=== PATIENT | female | born 1980 | race Caucasian/White ===

== ENCOUNTER 2016-04-29 10:49 | Emergency (ER) ==
[2016-04-29 10:53] VITALS: BP 159/103; TEMP 99.6
[2016-04-29 12:05] LABS: FLU INTERNAL QC INTERNAL QC VALID; RAPID FLU A NEGATIVE (NEGATIVE); RAPID FLU B NEGATIVE (NEGATIVE)
--- NOTE | 2016-04-29 12:11 | ED.PDOC ---
General ED Provider: Dr. ATA ESCAMILLA-ER Chief Complaint: Cough Stated Complaint: im coughing Time Seen by Physician: 10:55 Mode of Arrival: Walk-In Information Source: Patient Exam Limitations: No limitations Nursing and Triage Documentation Reviewed and Agree: Yes Respiratory Complaint Exam - Respiratory Complaint/Exam Onset/Duration: 2 dayus Symptoms Are: Still present Timing: Intermittent Initial Severity: Mild Current Severity: Mild Character: Reports: Non-productive cough Aggravating: Reports: URI Alleviating: Reports: None Associated Signs and Symptoms: Reports: URI, Nasal congestion, Sore throat. Denies: Rapid breathing, Dyspnea, Fever, Chills, Chest pain, Pleuritic chest pain, Wheezing, Hemoptysis, Dizziness, Calf pain, Calf swelling, Edema, Hoarseness, Sinus discomfort, Vomiting, Weight loss, Decreased oral intake, Increased appetite, Increased urination Related History: Reports: Similar episode History of Healthcare-Acquired Pneumonia: No Related Surgical History: Reports: None Pulmonary Embolism Risk Factors: None Pseudomonas Risk Factors: Reports: None Tuberculosis Risk Factors: Reports: None Status Asthmaticus Risk Factors: Reports: None Home Oxygen Use: No Recent Stress Test: No Recent Echo/LV Function: No Current Antibiotic Use: No Current Asthma Medication Use: No Respiratory Distress: None Inadequate Respiratory Effort: No Dysphagia Present: No Stridor Present: No JVD Present: No Accessory Muscle Use: No Retractions: Not Present Diminished Breath Sounds: No Sinus Tenderness: None Grunting Respirations: No Kussmaul Respirations: No Differential Diagnoses: Bronchitis Review of Systems - Review Of Systems Constitutional: Reports: No symptoms Eyes: Reports: No symptoms Ears, Nose, Mouth, Throat: Reports: Throat pain Respiratory: Reports: Cough Cardiac: Reports: No symptoms GI: Reports: No symptoms : Reports: No symptoms Musculoskeletal: Reports: No symptoms Skin: Reports: No symptoms Neurological: Reports: No symptoms Endocrine: Reports: No symptoms Hematologic/Lymphatic: Reports: No symptoms All Other Systems: Reviewed and Negative Past Medical History - Past Medical History Previously Healthy: Yes Endocrine: Reports: None Cardiovascular: Reports: None Respiratory: Reports: None Hematological: Reports: None Gastrointestinal: Reports: None Genitourinary: Reports: None Neuro/Psych: Reports: Migraine Musculoskeletal: Reports: None Cancer: Reports: None Last Menstrual Period: 1 week ago - Surgical History General Surgical History: Reports: None - Family History Family History: Reports: None - Social History Smoking Status: Current every day smoker Hx Substance Use: No Alcohol Screening: None Lives: With family Physical Exam - Physical Exam Appearance: Well-appearing, No pain distress, Well-nourished Eyes: DOUGLAS, EOMI, Conjunctiva clear ENT: Ears normal, Nose normal, Oropharynx normal Neck: Supple Respiratory: Rhonchi Cardiovascular: RRR GI/: Soft, Nontender, No masses, Bowel sounds normal, No Organomegaly Musculoskeletal: Normal strength Skin: Warm, Dry, Normal color Neurological: Sensation intact, Motor intact, Reflexes intact, Cranial nerves intact, Alert, Oriented Psychiatric: Affect appropriate, Mood appropriate Critical Care Note - Critical Care Note Total Time (mins): 0 Course - Course Orders, Labs, Meds: Lab Review 04/29/16 11:02 Influenza A (Rapid) Negative Influenza B (Rapid) Negative Orders Category Date Time Status MOLECULAR GROUP A STREP Stat LAB 04/29/16 11:02 Results RAPID FLU A/B Stat LAB 04/29/16 11:02 Completed STREP SCREEN Stat LAB 04/29/16 11:02 Results Vital Signs: Temp Pulse Resp BP Pulse Ox 04/29/16 10:51 99.6 F 90 16 159/103 H 96 Departure - Departure Time of Disposition: 12:10 Disposition: HOME SELF-CARE Discharge Problem: Bronchitis Instructions: Acute Bronchitis (ED) Condition: Good Pt referred to PMD for follow-up: Yes Additional Instructions: biaxin 500mg bid x 10 days..medrol dose pack--robitussin ac 2 tsps q 6hrs prn cough 125cc--avoid cig smoke--recheck in 72hrs if not better Allergies/Adverse Reactions: Allergies amoxicillin trihydrate [From Augmentin] Adverse Reaction (Verified 04/29/16 10: 54) Penicillins Adverse Reaction (Verified 04/29/16 10:54) potassium clavulanate [From Augmentin] Adverse Reaction (Verified 04/29/16 10:54 ) Sulfa (Sulfonamide Antibiotics) Adverse Reaction (Verified 04/29/16 10:54) Home Medications: Ambulatory Orders 1 [No Reported Medications] 04/29/16 Disposition Discussed With: Patient
== END 2016-04-29 12:20 | disposition home or self-care (01) ==
LOC: ED 10:49
DX: J20.9 Acute bronchitis, unspecified (principal); F17.210 Nicotine dependence, cigarettes, uncomplicated
CPT/HCPCS: 87651; 87804; 87880; 99282

== ENCOUNTER 2017-01-13 21:18 | Emergency (ER) ==
[2017-01-13 21:21] VITALS: TEMP 98.3; BMI 20.5
[2017-01-13 21:38] LABS: BILIRUBIN,URINE 1+ (NEGATIVE); KETONES,URINE Trace (NEGATIVE); LEUKOCYTE ESTERASE ,URINE Trace (NEGATIVE); NITRITE,URINE Negative (NEGATIVE); PROTEIN,URINE 3+ (NEGATIVE); URINE, BLOOD 3+ (NEGATIVE)
[2017-01-13 21:42] LABS: ADD URINE MICROSCOPIC YES
[2017-01-13] MEDS ORDERED: DILAUDID 1 MG/ML SYRINGE IVP STA (21:43)
[2017-01-13] MEDS ORDERED: ZOFRAN 4 MG/2 ML IVP STA (21:43)
[2017-01-13] MEDS ORDERED: PROTONIX IV IVP STA (21:43)
[2017-01-13] MEDS ORDERED: SODIUM CHLORIDE 1,000 ML IV STA (21:43)
--- NOTE | 2017-01-13 21:48 | ED.PDOC ---
General ED Provider: Dr. VIRGINIE CARTY Chief Complaint: Abdominal Pain Stated Complaint: Pateint states she has had Abdominal pain for two weeks with some nausea and vomiting. Time Seen by Physician: 21:48 Mode of Arrival: Walk-In Information Source: Patient, Family Exam Limitations: No limitations [facility] Nursing and Triage Documentation Reviewed and Agree: Yes GI Complaint Exam - Abdominal Pain Complaint/Exam Onset: Gradual Duration: 2 weeks Symptoms Are: Still present Timing: Constant Initial Severity: Mild Current Severity: None Location of Pain: RLQ Radiates To: Reports: Back Character: Reports: Dull, Aching Aggravating: Reports: None Associated Signs and Symptoms: Reports: Nausea, Vomiting. Denies: Diaphoresis, Fever, Cough, Chest pain, Dizziness, Back pain, Constipation, Blood in stool, Dysuria, Urinary frequency, Decreased urine output, Decreased appetite, Vaginal bleeding, Vaginal discharge, Diarrhea, Sore throat, Decreased activity AAA Risk Factors: Reports: None Cardiac Risk Factors: Reports: None Ectopic Risk Factors: Reports: Maternal age >30 Ovarian Torsion Risk Factors: Reports: Tubal ligation Surgical Obstruction Risk Factors: Reports: None Related Surgical History: Reports: None Patient Rh Status: Unknown Abdominal Findings: Present: McBurney's Point tender Differential Diagnoses: Appendicitis, Gastroenteritis, UTI, , Ovarian Cyst Review of Systems - Review Of Systems Constitutional: Reports: No symptoms Eyes: Reports: No symptoms Ears, Nose, Mouth, Throat: Reports: No symptoms Respiratory: Reports: No symptoms Cardiac: Reports: No symptoms GI: Reports: Abdominal pain, Nausea, Poor appetite, Vomiting : Denies: Burning, Dysuria, Discharge, Frequency Musculoskeletal: Reports: No symptoms Skin: Reports: No symptoms Neurological: Reports: Anxiety Endocrine: Reports: No symptoms Hematologic/Lymphatic: Reports: No symptoms All Other Systems: Reviewed and Negative Past Medical History - Past Medical History Previously Healthy: Yes Endocrine: Reports: None Cardiovascular: Reports: None Respiratory: Reports: None Hematological: Reports: None Gastrointestinal: Reports: None Genitourinary: Reports: None Neuro/Psych: Reports: Migraine Musculoskeletal: Reports: None Cancer: Reports: None Last Menstrual Period: CURRENT - Surgical History General Surgical History: Reports: Tubal ligation - Family History Family History: Reports: None - Social History Smoking Status: Current every day smoker Hx Substance Use: No Alcohol Screening: Occasionally - Immunizations Tetanus Shot up to Date: Yes Physical Exam - Physical Exam Appearance: Ill-appearing Ill-appearing: Moderate Pain Distress: Moderate Neck: Supple Respiratory: Airway patent, Breath sounds clear, Breath sounds equal, Respirations nonlabored Cardiovascular: RRR, Pulses normal, No rub, No murmur GI/: Soft, Tender Musculoskeletal: Normal strength, ROM intact, No edema, No calf tenderness Skin: Warm, Dry, Normal color Neurological: Sensation intact, Motor intact, Reflexes intact, Cranial nerves intact, Alert, Oriented Psychiatric: Anxious Interpretation - Radiology Interpretation Radiology Interpretation By: Radiologist Radiology Results: Negative Exam Interpreted: CT Scan (Abdomen and Pelvis) Critical Care Note - Critical Care Note Total Time (mins): 0 Course - Course Hematology/Chemistry: 01/13/17 21:54 01/13/17 21:54 Orders, Labs, Meds: Lab Review 01/13/17 01/13/17 01/13/17 20:30 21:54 21:54 WBC 7.45 RBC 3.95 L Hgb 12.3 Hct 35.3 L MCV 89.4 MCH 31.1 H MCHC 34.8 RDW Coeff of Marjan 11.9 Plt Count 316 Immature Gran % (Auto) 0.3 Neut % (Auto) 79.3 Lymph % (Auto) 11.0 [place] % (Auto) 7.5 Eos % (Auto) 1.5 Baso % (Auto) 0.4 Immature Gran # (Auto) 0.0 Neut # 5.9 Lymph # 0.8 [place] # 0.6 Eos # 0.1 Baso # 0.0 Sodium 138 Potassium 3.5 Chloride 104 Carbon Dioxide 24 Anion Gap 13.5 BUN 10 Creatinine 0.75 Estimated GFR (MDRD) 87.00 BUN/Creatinine Ratio 13.33 Glucose 101 Calcium 9.0 Total Bilirubin 0.49 AST 20 ALT 17 Alkaline Phosphatase 62 Total Protein 7.2 Albumin 3.5 Globulin 3.7 Albumin/Globulin Ratio 0.95 Amylase 30 Lipase 16 Serum , Qual Urine Color Red Urine Clarity Turbid Urine pH 6.0 Ur Specific [place] 1.025 Urine Protein 3+ Urine Glucose (UA) Negative Urine Ketones Trace Urine Blood 3+ Urine Nitrite Negative Urine Bilirubin 1+ Urine Urobilinogen 1.0 Ur Leukocyte Esterase Trace Urine Microscopic RBC Tntc Urine Microscopic WBC Tntc Ur Squamous Epith Cells 10-20 01/13/17 21:55 WBC RBC Hgb Hct MCV MCH MCHC RDW Coeff of Marjan Plt Count Immature Gran % (Auto) Neut % (Auto) Lymph % (Auto) [place] % (Auto) Eos % (Auto) Baso % (Auto) Immature Gran # (Auto) Neut # Lymph # [place] # Eos # Baso # Sodium Potassium Chloride Carbon Dioxide Anion Gap BUN Creatinine Estimated GFR (MDRD) BUN/Creatinine Ratio Glucose Calcium Total Bilirubin AST ALT Alkaline Phosphatase Total Protein Albumin Globulin Albumin/Globulin Ratio Amylase Lipase Serum , Qual Negative Urine Color Urine Clarity Urine pH Ur Specific [place] Urine Protein Urine Glucose (UA) Urine Ketones Urine Blood Urine Nitrite Urine Bilirubin Urine Urobilinogen Ur Leukocyte Esterase Urine Microscopic RBC Urine Microscopic WBC Ur Squamous Epith Cells Orders Category Date Time Status ED IV/MEDIPORT/POWERPORT .ONCE EMERGENCY 01/13/17 21:43 Active AMYLASE Stat LAB 01/13/17 21:54 Completed CBC W/ AUTO DIFF Stat LAB 01/13/17 21:54 Completed COMPREHENSIVE METABOLIC PANEL Stat LAB 01/13/17 21:54 Completed LIPASE Stat LAB 01/13/17 21:54 Completed SERUM TEST [SERUM ] Stat LAB 01/13/17 21:55 Completed UA [URINALYSIS C & S IF INDICATED] Stat LAB 01/13/17 20:30 Completed URINE CULTURE Stat LAB 01/13/17 21:31 Received 0.9 % Sodium Chloride [Saline Flush] MEDS 01/13/17 21:43 Ordered 1 syr IVF PRN PRN Hydromorphone HCl [Dilaudid 1 mg/ml Syringe] MEDS 01/13/17 21:43 Discontinued 1 mg IVP ONCE STA Nitrofurantoin Monohyd/M-Cryst [Macrobid] MEDS 01/13/17 23:27 Stat 100 mg PO ONCE STA Ondansetron HCl/Pf [Zofran 4 mg/2 ml] MEDS 01/13/17 21:43 Discontinued 4 mg IVP ONCE STA Pantoprazole Sodium [Protonix IV] MEDS 01/13/17 21:43 Discontinued 40 mg IVP ONCE STA Sodium Chloride 0.9% [Sodium Chloride] 1,000 ml MEDS 01/13/17 21:[address] ABD/PEL WO RENAL STONE PROT Stat RADS 01/13/17 21:43 Completed Medications Generic Name Dose Route Start Last Admin Trade Name Freq PRN Reason Stop Dose Admin Nitrofurantoin Macrocrystals 100 mg 01/13/17 23:27 Macrobid PO 01/13/17 23:28 ONCE STA Sodium Chloride 1 syr 01/13/17 21:43 01/13/17 22:07 Saline Flush IVF 1 syr PRN PRN Administration To flush IV Discontinued Medications Generic Name Dose Route Start Last Admin Trade Name Freq PRN Reason Stop Dose Admin Hydromorphone HCl 1 mg 01/13/17 21:43 01/13/17 22:06 Dilaudid 1 Mg/Ml Syringe IVP 01/13/17 21:44 1 mg ONCE STA Administration Sodium Chloride 1,000 mls @ 1,000 mls/hr 01/13/17 21:43 01/13/17 22:07 Sodium Chloride IV 01/13/17 22:42 1,000 mls/hr BOLUS STA Administration Ondansetron HCl 4 mg 01/13/17 21:43 01/13/17 22:07 Zofran 4 Mg/2 Ml IVP 01/13/17 21:44 4 mg ONCE STA Administration Pantoprazole Sodium 40 mg 01/13/17 21:43 01/13/17 22:06 Protonix Iv IVP 01/13/17 21:44 40 mg ONCE STA Administration Vital Signs: Temp Pulse Resp BP Pulse Ox 01/13/17 23:13 112/67 01/13/17 21:19 98.3 F 90 20 110/78 99 Departure - Departure Time of Disposition: 23:14 Disposition: HOME SELF-CARE Discharge Problem: Abdominal pain Urinary tract infection Qualifiers: Urinary tract infection type: acute cystitis Hematuria presence: with hematuria Qualified Code(s): N30.01 - Acute cystitis with hematuria Instructions: Abdominal Pain (ED), Urinary Tract Infection in Women (ED) Condition: Fair Pt referred to PMD for follow-up: Yes Additional Instructions: Take medication as prescribed Follow up with PCP in 3 days Push fluids Prescriptions: Dicyclomine HCl [Bentyl] 10 mg PO TID PRN #30 capsule PRN Reason: Abdominal Pain Nitrofurantoin Macrocrystal [Macrodantin] 100 mg PO BID #14 capsule Ondansetron HCl [Zofran Tab] 4 mg PO Q8H PRN #15 tablet PRN Reason: Nausea / Vomiting Allergies/Adverse Reactions: Allergies amoxicillin trihydrate [From Augmentin] Adverse Reaction (Verified 04/29/16 10: 54) Penicillins Adverse Reaction (Verified 04/29/16 10:54) potassium clavulanate [From Augmentin] Adverse Reaction (Verified 04/29/16 10:54 ) Sulfa (Sulfonamide Antibiotics) Adverse Reaction (Verified 04/29/16 10:54) Home Medications: Ambulatory Orders Dicyclomine HCl [Bentyl] 10 mg PO TID PRN #30 capsule 01/13/17 Nitrofurantoin Macrocrystal [Macrodantin] 100 mg PO BID #14 capsule 01/13/17 Ondansetron HCl [Zofran Tab] 4 mg PO Q8H PRN #15 tablet 01/13/17 Disposition Discussed With: Patient, Family
[2017-01-13 21:56] LABS: BASOPHILS % (AUTO) 0.4 % (0.0-3.0); EOSINOPHILS # (AUTO) 0.1 K/ul (0.0-0.7); EOSINOPHILS % (AUTO) 1.5 % (0.0-7.0); HEMATOCRIT 35.3 % (37.0-47.0); HEMOGLOBIN 12.3 g/dl (12.0-16.0); IMMATURE GRANULOCYTE % (AUTO) 0.3 % (0.0-5.0); LYMPHOCYTES # (AUTO) 0.8 K/uL (0.60-3.4); MEAN CORPUSCULAR HEMOGLOBIN 31.1 pg (27.0-31.0); MEAN CORPUSCULAR HGB CONC 34.8 (31.8-35.4); MEAN CORPUSCULAR VOLUME 89.4 fl (81.0-99.0); MONOCYTES # (AUTO) 0.6 K/uL (0.4-2.0); MONOCYTES % (AUTO) 7.5 (0-10); NEUTROPHILS # (AUTO) 5.9 K/ul (2.0-6.9); NEUTROPHILS % (AUTO) 79.3; PLATELET COUNT 316 10^3/uL (140-440); RED BLOOD COUNT 3.95 10^6/ul (4.20-5.40); WHITE BLOOD COUNT 7.45 K/ul (4.6-10.2)
[2017-01-13 22:14] LABS: SERUM PREGNANCY INTERNAL QC INTERNAL QC VALID
[2017-01-13 22:18] LABS: ALBUMIN 3.5 g/dL (3.4-5.0); ALBUMIN/GLOBULIN RATIO 0.95; ANION GAP 13.5; BILIRUBIN,TOTAL 0.49 mg/dL (0.00-1.20); BUN/CREATININE RATIO 13.33; CREATININE 0.75 mg/dL (0.60-1.30); POTASSIUM 3.5 mmol/L (3.5-5.10); TOTAL PROTEIN 7.2 g/dL (6.4-8.2)
--- NOTE | 2017-01-13 22:50 | CT ---
Exam: CT of the abdomen and pelvis without contrast History: Abdominal pain Technique: [address] of the abdomen pelvis without intravascular contrast FINDINGS: The lung bases are clear. No significant liver abnormality. The adrenals, pancreas and spl een are unremarkable. The stomach and hiatus are unremarkable.The gallbladder appears normal. Kidneys and proximal collecting system are unremarkable. Atherosclerotic calcification of the aorta without aneurysm. The appendix is normal. Pelvic genitourinary structures appear normal. Pelvic bowel loops are unremarkable. No inflammatory c hange in the pelvic fat. No acute abnormality of the abdominal or pelvic skeleton. Impression: 1. No inflammatory process, bowel or urinary obstruction is seen. No acute findings of the abdomen or pelvis.
[2017-01-13 23:14] VITALS: BP 112/67
[2017-01-13] MEDS ORDERED: MACROBID PO STA (23:27)
== END 2017-01-13 23:48 | disposition home or self-care (01) ==
LOC: ED 21:18
DX: N30.01 Acute cystitis with hematuria (principal); R10.9 Unspecified abdominal pain; F17.210 Nicotine dependence, cigarettes, uncomplicated
CPT/HCPCS: 36415; 74176; 80053; 81001; 82150; 83690; 84703; 85025; 87086; 96361; 96374; 96375; 99284

== ENCOUNTER 2017-07-17 12:39 | Emergency (ER) | payer OTHER ==
[2017-07-17 12:42] VITALS: BP 145/89; TEMP 99.3; BMI 21.2
[2017-07-17] MEDS ORDERED: DILAUDID 2 MG/ML SYRINGE IM STA (12:45)
[2017-07-17] MEDS ORDERED: PHENERGAN 25 MG/ML VIAL IM STA (12:45)
--- NOTE | 2017-07-17 12:48 | ED.PDOC ---
General ED Provider: Dr. ATA ESCAMILLA-ER Chief Complaint: Headache Stated Complaint: jermain got a migraine Time Seen by Physician: 12:47 Mode of Arrival: Walk-In Information Source: Patient Exam Limitations: No limitations Primary [facility] Nursing and Triage Documentation Reviewed and Agree: Yes Reviewed sepsis parameters & appropriate labs ordered?: Yes System Inflammatory Response Syndrome: Not Applicable Sepsis Protocol: For patient's 13 years and over: Temp is 96.8 and below OR 101 and greater Pulse >90 BPM Resp >20/minute Acutely Altered Mental Status Are patient's symptoms suggestive of a new infection, such as: -Pneumonia -Skin, Soft Tissue -Endocarditis -UTI -Bone, Joint Infection -Implantable Device -Acute Abdominal Infection -Wound Infection -Meningitis -Blood Stream Catheter Infection -Unknown Neurological Complaint Exam - Headache Complaint/Exam Onset: Gradual Duration: several hours Symptoms Are: Still present Worst Headache Ever: No Initial Severity: Mild Current Severity: Moderate Location: Diffuse Character: Reports: Dull, Throbbing, Typical headache, Migraine Aggravating: Reports: Bright lights Alleviating: Reports: None Associated Signs and Symptoms: Reports: Nausea. Denies: Dizziness, Seizure, Vomiting, Sinus pressure, Fever, Neck pain, Neck stiffness, Decreased LOC, Visual changes Related History: Reports: Similar episode Related Surgical History: Reports: None Temporal Arteritis Risk Factors: Reports: Female, Normal Head CT Within Last 12 Months: No Fundoscopic Exam: Present: Normal Findings Papilledema Present: No Temporal Artery Tenderness: Present: None Sinus Tenderness: Present: None TMJ Tenderness: Present: None Glascow Coma Scale (see protocol): 15 Meningeal Signs Positive: No Pain on Passive Flexion-Positive Kernig's: No ROM Limited In: No Limitiations Focal Weakness: Present: None Focal Sensory Loss: Present: None Gait: Normal Nystagmus Present: No Gag Reflex Present: Yes [id number]: Normal Findings Romberg Test Positive: No Babinski Sign: Negative Right, Negative Left Heel to Toe Normal: Yes Differential Diagnoses: Migraine Review of Systems - Review Of Systems Constitutional: Reports: No symptoms Eyes: Reports: No symptoms Ears, Nose, Mouth, Throat: Reports: No symptoms Respiratory: Reports: No symptoms Cardiac: Reports: No symptoms GI: Reports: Nausea : Reports: No symptoms Musculoskeletal: Reports: No symptoms Skin: Reports: No symptoms Neurological: Reports: Headache Endocrine: Reports: No symptoms Hematologic/Lymphatic: Reports: No symptoms All Other Systems: Reviewed and Negative Past Medical History - Past Medical History Previously Healthy: Yes Endocrine: Reports: None Cardiovascular: Reports: None Respiratory: Reports: None Hematological: Reports: None Gastrointestinal: Reports: None Genitourinary: Reports: None Neuro/Psych: Reports: Migraine Musculoskeletal: Reports: None Cancer: Reports: None Last Menstrual Period: now - Surgical History General Surgical History: Reports: Tubal ligation - Family History Family History: Reports: None - Social History Smoking Status: Current every day smoker, Light tobacco smoker Hx Substance Use: No Alcohol Screening: Occasionally Lives: With family Physical Exam - Physical Exam Appearance: Well-appearing, No pain distress, Well-nourished Pain Distress: Moderate Eyes: DOUGLAS, EOMI, Conjunctiva clear ENT: Ears normal, Nose normal, Oropharynx normal Neck: Supple Respiratory: Airway patent Cardiovascular: RRR, Pulses normal, No rub, No murmur GI/: Soft, Nontender, No masses, Bowel sounds normal, No Organomegaly Musculoskeletal: Normal strength Skin: Warm Neurological: Alert, Oriented Psychiatric: Affect appropriate, Mood appropriate Re-Evaluation - Re-Evaluation Time of Re-Evaluation: 13:14 Status: Improved Vital Signs Stable: Yes Pain Level: 0 Appearance: NAD Lungs: Clear Skin: Warm and Dry Neuro: Alert and Oriented X3 CV: RRR Critical Care Note - Critical Care Note Total Time (mins): 0 Course - Course Orders, Labs, Meds: Orders Category Date Time Status Hydromorphone HCl/Pf [Dilaudid 2 mg/ml Syringe] MEDS 07/17/17 12:45 Discontinued 2 mg IM ONCE STA Promethazine HCl [Phenergan 25 mg/ml Vial] MEDS 07/17/17 12:45 Discontinued 25 mg IM ONCE STA Medications Discontinued Medications Generic Name Dose Route Start Last Admin Trade Name Freq PRN Reason Stop Dose Admin Hydromorphone HCl 2 mg 07/17/17 12:45 07/17/17 12:59 Dilaudid 2 Mg/Ml Syringe IM 07/17/17 12:46 2 mg ONCE STA Administration Promethazine HCl 25 mg 07/17/17 12:45 07/17/17 13:01 Phenergan 25 Mg/Ml Vial IM 07/17/17 12:46 25 mg ONCE STA Administration Vital Signs: Temp Pulse Resp BP Pulse Ox 07/17/17 12:39 99.3 F 92 H 20 145/89 H 98 Departure - Departure Time of Disposition: 13:14 Disposition: HOME SELF-CARE Discharge Problem: Migraine Qualifiers: Migraine type: other Status migrainosus presence: without status migrainosus Intractability: not intractable Qualified Code(s): G43.809 - Other migraine, not intractable, without status migrainosus Instructions: Migraine Headache (ED) Condition: Good Pt referred to PMD for follow-up: Yes IPMP verified?: No Additional Instructions: f/u with pcp Allergies/Adverse Reactions: Allergies amoxicillin trihydrate [From Augmentin] Adverse Reaction (Verified 07/17/17 12: 42) Penicillins Adverse Reaction (Verified 07/17/17 12:42) potassium clavulanate [From Augmentin] Adverse Reaction (Verified 07/17/17 12:42 ) Sulfa (Sulfonamide Antibiotics) Adverse Reaction (Verified 07/17/17 12:42) Home Medications: Ambulatory Orders 1 [No Reported Medications] 07/17/17 Disposition Discussed With: Patient, Family
== END 2017-07-17 13:23 | disposition home or self-care (01) ==
LOC: ED 12:39
DX: G43.809 Other migraine, not intractable, without status migrainosus (principal); F17.210 Nicotine dependence, cigarettes, uncomplicated
CPT/HCPCS: 96372; 99282

== ENCOUNTER 2017-09-26 19:20 | Emergency (ER) ==
[2017-09-26 19:25] VITALS: BP 156/97; TEMP 98.7; BMI 22.3
[2017-09-26] MEDS ORDERED: STADOL IM STA (19:40)
[2017-09-26] MEDS ORDERED: ZOFRAN ODT PO STA (19:40)
--- NOTE | 2017-09-26 19:48 | ED.PDOC ---
General ED Provider: Dr. VIRGINIE CARTY Chief Complaint: Tooth Problem Stated Complaint: Pateint states that she had her two right molar tooth removed. yesterday. She was given antibotics to take and has been on Tylenol # 3. She states that the pain is not better with the pain medications. She has an appointment with the dentist tomorrow. Time Seen by Physician: 19:41 Mode of Arrival: Walk-In Information Source: Patient Exam Limitations: No limitations [facility] Nursing and Triage Documentation Reviewed and Agree: Yes Does patient meet sepsis criteria?: No System Inflammatory Response Syndrome: Not Applicable Sepsis Protocol: For patient's 13 years and over: Temp is 96.8 and below OR 101 and greater Pulse >90 BPM Resp >20/minute Acutely Altered Mental Status Are patient's symptoms suggestive of a new infection, such as: -Pneumonia -Skin, Soft Tissue -Endocarditis -UTI -Bone, Joint Infection -Implantable Device -Acute Abdominal Infection -Wound Infection -Meningitis -Blood Stream Catheter Infection -Unknown EENT Complaint Exam - Dental/Oral Complaint/Exam Mechanism of Injury: No known trauma (but tooth extraction) Onset/Duration: 2 days Symptoms Are: Still present Timing: Constant Initial Severity: Severe Current Severity: Severe Location: Right lower molar Character: Reports: Aching, Throbbing Aggravating: Reports: None Alleviating: Reports: None Associated Signs and Symptoms: Reports: Swelling Cardiac Risk Factors: Reports: None Dental/Oral Surgical History: Reports: Third Molar Extractions Tooth Findings: Present: Percussion tenderness Facial Swelling Present: Yes Bleeding Present: No Septal Hematoma: No Foreign Body Present: No Dysphagia Present: No Drooling Present: No Asymmetrical Tonsillar Swelling Present: No Uvula Midline: No Hannah-tonsillar Fluctuence: No Trismus Present: No Palatal Petechiae Present: No Scarlatinaform Rash Present: No Lesions: Absent: Lip, Gums, Tongue, Buccal Mucosa, Pharynx Exanthem: Absent: Lip, Gums, Tongue, Buccal Mucosa, Pharynx Vesicles: Absent: Lip, Gums, Tongue, Buccal Mucosa, Pharynx Teeth Picture: 1 - extraction, Dry socket 2 - missing tooth 3 - missing tooth Differential Diagnoses: Dental Abcess, Post-Extraction Pain Review of Systems - Review Of Systems Constitutional: Reports: No symptoms Eyes: Reports: No symptoms Ears, Nose, Mouth, Throat: Reports: Mouth pain Respiratory: Reports: No symptoms Cardiac: Reports: No symptoms GI: Reports: No symptoms : Reports: No symptoms Musculoskeletal: Reports: No symptoms Skin: Reports: No symptoms Neurological: Reports: No symptoms Endocrine: Reports: No symptoms Hematologic/Lymphatic: Reports: No symptoms All Other Systems: Reviewed and Negative Past Medical History - Past Medical History Previously Healthy: Yes Endocrine: Reports: None Cardiovascular: Reports: None Respiratory: Reports: None Hematological: Reports: None Gastrointestinal: Reports: None Genitourinary: Reports: None Neuro/Psych: Reports: Migraine Musculoskeletal: Reports: None Cancer: Reports: None Last Menstrual Period: 09/26/17 - Surgical History General Surgical History: Reports: Tubal ligation - Family History Family History: Reports: None - Social History Smoking Status: Current every day smoker, Light tobacco smoker Hx Substance Use: No Alcohol Screening: Occasionally - Immunizations Tetanus Shot up to Date: Yes Physical Exam - Physical Exam Appearance: Ill-appearing Ill-appearing: Mild Pain Distress: Severe Eyes: DOUGLAS, EOMI, Conjunctiva clear ENT: Ears normal, Nose normal, Oropharynx normal Neck: Supple Respiratory: Airway patent, Breath sounds clear, Breath sounds equal, Respirations nonlabored Cardiovascular: RRR, Pulses normal, No rub, No murmur GI/: Soft, Nontender, No masses, Bowel sounds normal, No Organomegaly Musculoskeletal: Normal strength, ROM intact, No edema, No calf tenderness Skin: Warm, Dry, Normal color Neurological: Sensation intact, Motor intact, Reflexes intact, Cranial nerves intact, Alert, Oriented Psychiatric: Affect appropriate, Mood appropriate Critical Care Note - Critical Care Note Total Time (mins): 0 Course - Course Orders, Labs, Meds: Orders Category Date Time Status Butorphanol Tartrate [Stadol] MEDS 09/26/17 19:40 Stat 2 mg IM ONCE STA Ondansetron [Zofran Odt] MEDS 09/26/17 19:40 Stat 4 mg PO ONCE STA Medications Discontinued Medications Generic Name Dose Route Start Last Admin Trade Name Coltq PRN Reason Stop Dose Admin Butorphanol Tartrate 2 mg 09/26/17 19:40 Stadol IM 09/26/17 19:41 ONCE STA Ondansetron HCl 4 mg 09/26/17 19:40 Zofran Odt PO 09/26/17 19:41 ONCE STA Vital Signs: Temp Pulse Resp BP Pulse Ox 09/26/17 19:21 98.7 F 90 16 156/97 H 100 Departure - Departure Time of Disposition: 20:10 Disposition: HOME SELF-CARE Discharge Problem: Toothache, Dry tooth socket Instructions: Dry Socket (ED) Condition: Good Pt referred to PMD for follow-up: Yes IPMP verified?: Yes (only Tylenol # 3 ) Additional Instructions: Take medications as prescribed Follow up with your dentist Tomorrow continue home antibiotics. Prescriptions: Oxycodone-Acetaminophe 7.5-325 [Percocet 7.5-325] 1 tab PO Q6H #20 tablet Allergies/Adverse Reactions: Allergies amoxicillin trihydrate [From Augmentin] Adverse Reaction (Verified 09/26/17 19: 24) Penicillins Adverse Reaction (Verified 09/26/17 19:24) potassium clavulanate [From Augmentin] Adverse Reaction (Verified 09/26/17 19:24 ) Sulfa (Sulfonamide Antibiotics) Adverse Reaction (Verified 09/26/17 19:24) Home Medications: Ambulatory Orders Oxycodone-Acetaminophe 7.5-325 [Percocet 7.5-325] 1 tab PO Q6H #20 tablet Disposition Discussed With: Patient, Family
== END 2017-09-26 20:21 | disposition home or self-care (01) ==
LOC: ED 19:20
DX: M27.3 Alveolitis of jaws (principal); Z98.890 Other specified postprocedural states; F17.210 Nicotine dependence, cigarettes, uncomplicated
CPT/HCPCS: 96372; 99282

== ENCOUNTER 2018-10-20 14:25 | Outpatient (CLI) ==
[2017-11-02 00:15] VITALS: BMI 20.9
--- NOTE | 2018-10-20 17:46 | DI ---
EXAM: Right knee four view HISTORY: Pain in right knee COMPARISON: None FINDINGS: The bones are normal. The medial, lateral, and patellofemoral compartments are normal in h eight. No joint effusion. IMPERSSION: Normal examination.
== END 2018-10-20 14:26 | disposition home or self-care (01) ==
LOC: RAD 14:25
PROVIDERS: ATTEND Nurse Practitioner Family
DX: M25.561 Pain in right knee (principal); S89.91XA Unspecified injury of right lower leg, initial encounter